=== PATIENT | female | born 1980 | race Caucasian/White ===

== ENCOUNTER 2017-04-26 14:00 | Observation (INO) | payer MEDICAID, OTHER ==
[~2017-04-26] VITALS: Ht 160 cm; Wt 74.4 kg
[~2017-04-26 14:00] MED LIST: ASCO500 PO; DSS100 PO; FERR-72 PO; IBUP-2070 PO; PREN90 PO
[2017-04-26 14:51] VITALS: BP 102/60
== END 2017-04-26 16:20 | disposition home or self-care (01) ==
LOC: 4S 14:00
PROVIDERS: ADMIT Obstetrics & Gynecology; ATTEND Obstetrics & Gynecology
DX: O26.893 Other specified pregnancy related conditions, third trimester (principal); O09.523 Supervision of elderly multigravida, third trimester; R19.7 Diarrhea, unspecified; R10.30 Lower abdominal pain, unspecified; Z3A.31 31 weeks gestation of pregnancy
CPT/HCPCS: 59025; G0378

== ENCOUNTER 2017-06-25 13:40 | Observation (INO) | payer OTHER ==
[2017-06-25 13:47] VITALS: BP 104/55
[2017-06-25] MEDS ORDERED: RINGERS SOLUTION,LACTATED 1,000 ML IV SCH (14:30)
== END 2017-06-25 16:15 | disposition home or self-care (01) ==
LOC: 4S 13:40
PROVIDERS: ADMIT Obstetrics & Gynecology; ATTEND Obstetrics & Gynecology
DX: O36.8130 Decreased fetal movements, third trimester, not applicable or unspecified (principal); O26.893 Other specified pregnancy related conditions, third trimester; M54.5 Low back pain; R10.2 Pelvic and perineal pain; O48.0 Post-term pregnancy; O09.523 Supervision of elderly multigravida, third trimester; Z3A.40 40 weeks gestation of pregnancy
CPT/HCPCS: 59025; 76811; 96360; G0378; J7120